=== PATIENT | female | born 1980 | race American Indian/Alaskan Native ===

== ENCOUNTER 2021-08-29 01:22 | Emergency (ER) | payer OTHER ==
[2021-08-29 01:28] VITALS: BP 127/68
[2021-08-29] MEDS ORDERED: IBUPROFEN 800 MG TAB PO ONE (02:10)
[2021-08-29] MEDS ORDERED: dexAMETHasone 20 MG/5 ML VIAL IV ONE (02:10)
--- NOTE | 2021-08-29 03:04 | XRay Report ---
XR chest routine 2V INDICATION / CLINICAL INFORMATION: Pain. COMPARISON: None available. FINDINGS: SUPPORT DEVICES: None. HEART /PULMONARY VASCULATURE: No significant abnormality. LUNGS / PLEURA: No significant pulmonary or pleural abnormality. No pneumothorax. ADDITIONAL FINDINGS: No significant additional findings. IMPRESSION: 1. No acute findings. Signer Name: Shoaib Nelson MD Signed: 08/29/2021 2:59 AM Workstation Name: [id number]
--- NOTE | 2021-08-29 03:54 | Emergency Department Report ---
ED General Adult HPI - General Chief complaint: Dyspnea/Respdistress Stated complaint: KATH Time Seen by Provider: 08/29/21 02:10 Source: patient Mode of arrival: Ambulatory Limitations: No Limitations - History of Present Illness Initial comments: Patient presents for cough shortness of breath nasal and head congestion x1 week. Patient denies fevers or chills. Patient rates symptoms at 4/10. Patient denies wheezing or stridor. Symptoms are exacerbated by hormonal exposure and activity. Symptoms are relieved by rest. There is no chest pain no nausea vomiting no dizziness no lightheadedness no fevers or chills. Patient appears well in no acute distress there is no labored breathing noted at this time. Severity scale (0 -10): 0 - Related Data Previous Rx's Medication Instructions Recorded Last Taken Type Albuterol Mdi (or & Nicu Only) 2 puff IH QID PRN #8.5 gram 08/29/21 Unknown Rx [ProAir HFA Inhaler] dexAMETHasone [Decadron] 4 mg PO Q12H 6 Days #6 tablet 08/29/21 Unknown Rx Allergies Allergy/AdvReac Type Severity Reaction Status Date / Time No Known Allergies Allergy Unverified 08/29/21 01:28 ED Review of Systems ROS: Stated complaint: KATH Other details as noted in HPI Constitutional: denies: chills, fever, malaise Eyes: denies: eye pain, eye discharge, vision change ENT: congestion. denies: ear pain, throat pain Respiratory: cough, shortness of breath. denies: wheezing Cardiovascular: denies: chest pain, palpitations Endocrine: no symptoms reported Gastrointestinal: denies: abdominal pain, nausea, diarrhea Genitourinary: denies: urgency, dysuria, discharge Musculoskeletal: denies: back pain, joint swelling, arthralgia Skin: denies: rash, lesions Neurological: denies: headache, weakness, paresthesias Psychiatric: denies: anxiety, depression Hematological/Lymphatic: denies: easy bleeding, easy bruising ED Past Medical Hx - Past Medical History Previous Medical History?: No - Surgical History Past Surgical History?: No - Medications Home Medications: Home Medications Medication Instructions Recorded Confirmed Last Taken Type Albuterol Mdi (or & Nicu Only) 2 puff IH QID PRN #8.5 gram 08/29/21 Unknown Rx [ProAir HFA Inhaler] dexAMETHasone [Decadron] 4 mg PO Q12H 6 Days #6 tablet 08/29/21 Unknown Rx ED Physical Exam - General Limitations: No Limitations General appearance: alert, in no apparent distress - Head Head exam: Present: atraumatic, normocephalic - Eye Eye exam: Present: normal appearance, EOMI Pupils: Present: normal accommodation - ENT ENT exam: Present: normal orophraynx, mucous membranes moist, TM's normal bilaterally, normal external ear exam, other (turbinates boggy clear rhinorrhea ) - Neck Neck exam: Present: normal inspection, full ROM. Absent: tenderness, meningismus, lymphadenopathy - Respiratory Respiratory exam: Present: normal lung sounds bilaterally. Absent: respiratory distress, wheezes, rales, rhonchi, stridor, chest wall tenderness - Cardiovascular Cardiovascular Exam: Present: regular rate, normal rhythm, normal heart sounds. Absent: systolic murmur, diastolic murmur, rubs, gallop - GI/Abdominal GI/Abdominal exam: Present: soft, normal bowel sounds. Absent: distended, tenderness, guarding, rebound, rigid, bruit, hernia - Rectal Rectal exam: Present: deferred - Extremities Exam Extremities exam: Present: normal inspection, full ROM, normal capillary refill. Absent: tenderness - Back Exam Back exam: Present: normal inspection, full ROM. Absent: CVA tenderness (R), CVA tenderness (L) - Neurological Exam Neurological exam: Present: alert, oriented X3, CN II-XII intact, normal gait - Psychiatric Psychiatric exam: Present: normal affect, normal mood - Skin Skin exam: Present: warm, dry, intact, normal color. Absent: rash ED Course Vital Signs 08/29/21 01:26 Temperature 98.2 F Pulse Rate 97 H Respiratory 18 Rate Blood Pressure 127/68 O2 Sat by Pulse 99 Oximetry ED Medical Decision Making - Radiology Data Radiology results: report reviewed, image reviewed XR chest routine 2V INDICATION / CLINICAL INFORMATION: Pain. COMPARISON: None available. FINDINGS: SUPPORT DEVICES: None. HEART /PULMONARY VASCULATURE: No significant abnormality. LUNGS / PLEURA: No significant pulmonary or pleural abnormality. No pneumothorax. ADDITIONAL FINDINGS: No significant additional findings. IMPRESSION: 1. No acute findings. Signer Name: Shoaib Nelson MD Signed: 08/29/2021 2:59 AM Workstation Name: [id number] - Medical Decision Making Chest x-ray normal no infiltrates no opacities. Symptoms are improved with medications given in ED plan DC to home with prescriptions. Patient will follow up with primary care doctor in 2 to 3 days. Patient will return to ED should symptoms worsen. Patient is currently alert and oriented x3 with no acute distress at this time. Respirations are even and nonlabored. Critical care attestation.: If time is entered above; I have spent that time in minutes in the direct care of this critically ill patient, excluding procedure time. ED Disposition Clinical Impression: Bronchitis URI (upper respiratory infection) Qualifiers: URI type: unspecified URI Qualified Code(s): J06.9 - Acute upper respiratory infection, unspecified Disposition: 01 HOME / SELF CARE / HOMELESS Is pt being admited?: No Does the pt Need Aspirin: No Condition: Stable Instructions: Chronic Bronchitis (ED), Viral Respiratory Infection Additional Instructions: Medication as prescribed, follow-up with your doctor in 2 to 3 days. Return to emergency department if symptoms worsen. Prescriptions: dexAMETHasone [Decadron] 4 mg PO Q12H 6 Days #6 tablet Albuterol Mdi (or & Nicu Only) [ProAir HFA Inhaler] 2 puff IH QID PRN #8.5 gram PRN Reason: Shortness Of Breath Referrals: LEENA PEDRAZA MD [Staff Physician] - 3-5 Days Forms: Work/School Release Form(ED) Time of Disposition: 03:59
== END 2021-08-29 04:23 | disposition home or self-care (01) ==
LOC: ED 01:22
DX: J06.9 Acute upper respiratory infection, unspecified (principal); J40 Bronchitis, not specified as acute or chronic; Z79.899 Other long term (current) drug therapy
CPT/HCPCS: 71046; 96374; 99283; J1100